=== PATIENT | female | born 1965 | race Two or more races ===

== ENCOUNTER 2017-02-03 12:53 | Emergency (ER) | payer MEDICAID ==
[~2017-02-03] VITALS: Ht 147.3 cm; Wt 54.4 kg
[2017-02-03 13:59] LABS: PLATELET COUNT 182 x10^3mcL (130-400)
[2017-02-03 14:04] LABS: BASOPHIL % 0 % (0-2); RED CELL DISTRIBUTION WIDTH 16.5 % (11.5-14.5)
[2017-02-03 14:07] LABS: CALCIUM 8.7 mg/dL (8.5-10.1); CARBON DIOXIDE 26.3 mmol/L (21-32); CHLORIDE SERUM 102 mmol/L (98-107); GFR1 > 60 mL/min; GLUCOSE SERUM 215 mg/dL (74-106); POTASSIUM SERUM 4.2 mmol/L (3.5-5.1); SODIUM SERUM 137 mmol/L (136-145)
[2017-02-03 14:11] LABS: ALKALINE PHOSPHATASE 181 U/L (46-116); ALT/SGPT 33 U/L (14-59); AST/SGOT 29 U/L (15-37); BILIRUBIN TOTAL 0.5 mg/dL (0.20-1.00); TOTAL PROTEIN, SERUM 8.2 g/dL (6.4-8.2)
[2017-02-03 14:12] LABS: ALBUMIN 3.2 g/dL (3.4-5.0)
[2017-02-03 15:47] VITALS: BP 120/70
== END 2017-02-03 15:47 | disposition home or self-care (01) ==
LOC: ED 12:53
PROVIDERS: Emergency Medicine
DX: R42 Dizziness and giddiness (principal); R20.2 Paresthesia of skin; I10 Essential (primary) hypertension; E11.9 Type 2 diabetes mellitus without complications; Z79.899 Other long term (current) drug therapy
CPT/HCPCS: 36415; Q0092; Q0162

== ENCOUNTER 2017-03-31 05:44 | Emergency (ER) | payer SELFPAY ==
[2017-03-31 06:51] LABS: BASOPHIL % 0.3 % (0-2); PLATELET COUNT 160 x10^3mcL (130-400)
[2017-03-31 06:58] LABS: RED CELL DISTRIBUTION WIDTH 15.4 % (11.5-14.5)
[2017-03-31 07:07] LABS: CALCIUM 8.6 mg/dL (8.5-10.1); CARBON DIOXIDE 24.6 mmol/L (21-32); CHLORIDE SERUM 101 mmol/L (98-107); CREATININE SERUM 0.8 mg/dL (0.6-1.0); GFR1 > 60 mL/min; GLUCOSE SERUM 129 mg/dL (74-106); POTASSIUM SERUM 3.7 mmol/L (3.5-5.1); SODIUM SERUM 136 mmol/L (136-145)
[2017-03-31 07:11] LABS: ALKALINE PHOSPHATASE 124 U/L (46-116); ALT/SGPT 42 U/L (14-59); AST/SGOT 47 U/L (15-37); BILIRUBIN TOTAL 0.47 mg/dL (0.20-1.00); TOTAL PROTEIN, SERUM 7.6 g/dL (6.4-8.2)
[2017-03-31 07:12] LABS: ALBUMIN 3.2 g/dL (3.4-5.0)
[2017-03-31 11:35] VITALS: BP 117/47
== END 2017-03-31 11:35 | disposition home or self-care (01) ==
LOC: ED 05:44
PROVIDERS: Emergency Medicine
DX: J45.901 Unspecified asthma with (acute) exacerbation (principal); R42 Dizziness and giddiness; I10 Essential (primary) hypertension; E11.9 Type 2 diabetes mellitus without complications
CPT/HCPCS: 83880; J7613; J7644; Q0092